=== PATIENT | female | born 1945 | race Caucasian/White ===

== ENCOUNTER → 2020-04-30 12:39 | Outpatient (BNVA) | payer OTHER, SELFPAY | PROVIDERS: Visit Provider Dermatology | DX: D48.9 Neoplasm of uncertain behavior, unspecified (principal) | CPT/HCPCS: 88304 ==

== ENCOUNTER 2022-05-04 12:26 | Outpatient (CLI) | payer MEDICARE, OTHER, SELFPAY ==
--- NOTE | 2022-05-04 12:53 | MM_ITS ---
WS: [id number] VIEWS: MLO and CC views both breasts. 3D digital tomosynthesis is also included in this exam. Comparison made with prior exam of outside mammograms dated 04/22/2020. Findings: There is 6.5 mm spiculated nodule in the medial posterior right breast best seen on the craniocaudal view. This is probably in the upper medial quadrant. This is suspicious for breast malignancy. No oth er discrete suspicious finding. The left breast is unchanged. Scattered fibroglandular densities. A straight 90 degree lateral view of the right breast and also regional ultrasound of the medial right breast would be indicated for further workup. MM/[place] [id number] Impression: BI-RADS: 0-Incomplete: Need additional imaging evaluation FOLLOW-UP: See Report This mammogram was also analyzed by the Computer Aided Detection System [employer].
== END 2022-05-04 12:27 | disposition home or self-care (01) ==
LOC: RAD 12:27
PROVIDERS: PCP Registered Nurse; Visit Provider Registered Nurse
DX: Z12.31 Encounter for screening mammogram for malignant neoplasm of breast (principal)
CPT/HCPCS: 77063; 77067

== ENCOUNTER 2022-06-29 12:41 | Outpatient (CLI) | payer MEDICARE, OTHER, SELFPAY ==
--- NOTE | 2022-06-29 12:59 | MM_ITS ---
WS: [id number] RIGHT 3D TOMOSYNTHESIS DIGITAL MAMMOGRAPHY WITH CAD CLINICAL INFORMATION: ABNORMAL MAMMO HISTORY: Additional views COMPARISON: May 04, 2022 TECHNIQUE: Additional views views of the right breast were obtained. FINDINGS: Scattered fibroglandular densities of the right breast. Again seen is the small 6 mm slightly spicula zhen lesion posterior depth RIGHT breast. This persists on spot compression views. Ultrasound describe d below. ULTRASOUND BREAST RIGHT TECHNIQUE: Ultrasound right breast focused area of concern. CLINICAL INFORMATION: ABNORMAL MAMMO FINDINGS: Ultrasound RIGHT breast 12 to 3:00 position. At the 1:00 position 8 cm from the nipple is an irregula r hypoechoic slightly spiculated solid nodule taller than wide measuring 7.6 x 5.9 x 7.8 mm. Recommen d further evaluation with ultrasound-guided biopsy. MM/[place] [id number] IMPRESSION: BI-RADS: 4-Suspicious Finding-Biopsy Should Be Considered FOLLOW UP: US Guided Biopsy Recommended Recommend further evaluation with ultrasound-guided biopsy
== END 2022-06-29 12:42 | disposition home or self-care (01) ==
PROVIDERS: PCP Registered Nurse; Visit Provider Registered Nurse
DX: R92.8 Other abnormal and inconclusive findings on diagnostic imaging of breast (principal); N63.12 Unspecified lump in the right breast, upper inner quadrant
CPT/HCPCS: 76642; 77061; G0279

== ENCOUNTER → 2022-07-06 12:39 | Outpatient (BNVA) | payer MEDICARE, OTHER, SELFPAY | PROVIDERS: PCP Registered Nurse; Visit Provider Dermatology | DX: D48.9 Neoplasm of uncertain behavior, unspecified (principal) | CPT/HCPCS: 88305 ==

== ENCOUNTER 2022-07-14 12:13 | Outpatient (CLI) | payer MEDICARE, OTHER, SELFPAY ==
--- NOTE | 2022-07-14 | US_ITS ---
WS: [id number] ULTRASOUND-GUIDED RIGHT BREAST BIOPSY HISTORY: ABNORMAL MAMMOGRAM, ABNORMAL ULTRASOUND OF THE BREAST COMPARISON: 06/29/2022 Procedure, risks and complications are explained to the patient. Medications are reviewed. Consent is obtained. The mass in the RIGHT breast is localized with ultrasound. Mass localizes to 1:00, 8 cm from the nipp le. Skin is cleansed with ChloraPrep and anesthetized with 1% buffered lidocaine. Small dermatome is made. Under sterile conditions mass is biopsied with a 14-gauge Achieve needle. Multiple core biopsie s are performed. Material placed in formalin and sent to pathology for review. No complications encou ntered. Breast tissue marker (Bard ultrasound enhanced ribbon): Single. Patient left the radiology suite with no complications. [place] [facility] [facility] with any concerns. US/[place] [id number] IMPRESSION: 1. Uncomplicated core needle biopsy RIGHT breast mass at 1:00. 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 RECOMMENDATION: Surgical and oncologic follow-up.
[2022-07-25 11:48] LABS: Breast Profile ER,PR,HER2,Ki-6 See Report
== END 2022-07-14 12:14 | disposition home or self-care (01) ==
PROVIDERS: PCP Registered Nurse; Visit Provider Registered Nurse
DX: R92.8 Other abnormal and inconclusive findings on diagnostic imaging of breast (principal); N63.12 Unspecified lump in the right breast, upper inner quadrant; C50.211 Malignant neoplasm of upper-inner quadrant of right female breast
CPT/HCPCS: 19083; 88305; 88361; 88374

== ENCOUNTER 2022-07-27 08:44 | Oncology outpatient (recurring) (ONCR) | payer MEDICARE, OTHER, SELFPAY | END 2022-08-16 23:59 | disposition home or self-care (01) | PROVIDERS: PCP Registered Nurse; Visit Provider Internal Medicine Hematology & Oncology | DX: C50.211 Malignant neoplasm of upper-inner quadrant of right female breast (principal); Z17.0 Estrogen receptor positive status [ER+] | CPT/HCPCS: 99204 ==

== ENCOUNTER → 2022-08-02 10:57 | Outpatient (BNVA) | payer MEDICARE, OTHER, SELFPAY | PROVIDERS: PCP Registered Nurse; Visit Provider Surgery | DX: C50.911 Malignant neoplasm of unspecified site of right female breast (principal); Z90.49 Acquired absence of other specified parts of digestive tract | CPT/HCPCS: 99203 ==

== ENCOUNTER 2022-08-29 07:53 | Day surgery (SDC) | payer MEDICARE, OTHER, SELFPAY ==
[2022-08-26 11:32] VITALS: BMI 26.0
[2022-08-29] VITALS (9 sets, daily range): BP systolic 126–157; BP diastolic 68–83; PULSE 70–90; RESP 12–18; TEMP 36.2–36.6; O2SAT 92–98
--- NOTE | 2022-08-29 | US_ITS ---
WS: [id number] ULTRASOUND-GUIDED RIGHT BREAST NEEDLE LOCALIZATION CLINICAL INFORMATION: RIGHT BREAST LUMPECTOMY COMPARISON: July 14, 2022 FINDINGS: The procedure including risks, benefits, and complications were discussed with the patient who agreed to proceed. Using sterile technique patient was prepped and draped in the usual sterile fashion. Aft er 1% lidocaine utilizing real-time ultrasound guidance 7 cm Kopan's needle was advanced through the lesion with wire tip approximately 3 cm distal to the lesion. Next a 5 cm Kopan's needle was advanced into the proximal aspect of the lesion and wire was deployed. No immediate complications. US/US surgical specimen IMPRESSION: 1. Uncomplicated ultrasound-guided wire localization RIGHT breast lesion at th e 1:00 position 8 cm from the nipple. 2. Surgical specimen demonstrates gross resection. 3. Recommend breast surgery and oncology follow-up. BI-RADS: 6-Known Biopsy-Proven Malignancy FOLLOW UP: See Report
--- NOTE | 2022-08-29 08:57 | ECG_ITS ---
[facility] Test Date: 2022-08-29 Pat Name: Leanna Coley Department: Room: Gender: Female Change Release Manager: : 1945 Requested By: Adan Blas Order Number: [id number] Cynthia MD: Magdiel Craig M.D. Measurements Intervals [place] Rate: 85 P: 37 [place]: 171 QRS: -20 QRSD: 88 T: 10 QT: 365 QTc: 435 Interpretive Statements SINUS RHYTHM LOW QRS VOLTAGE IN PRECORDIAL LEADS [QRS DEFLECTION < 1.0 mV IN CHEST LEADS] MODERATE VOLTAGE CRITERIA FOR LVH, CONSIDER NORMAL VARIANT [MEETS CRITERIA IN ONE OF: R(aVL), S(V1), R(V5), R(V5/V6)+S(V1)] POSSIBLE ANTERIOR MYOCARDIAL INFARCTION , OF INDETERMINATE AGE [30 ms Q WAVE IN V3/V4, OR R < 0.2 mV IN V4] INFERIOR MYOCARDIAL INFARCTION , PROBABLY OLD [40+ ms Q WAVE AND/OR ST/T ABNORMALITY IN II/aVF] No previous ECG available for comparison Electronically Signed On 08-30-2022 0:19:45 CDT by Magdiel Craig M.D. [id number]
[2022-08-29] MEDS: sodium chloride 0.9% 1,000 ML 30 ML IV (09:08)
[2022-08-29] MEDS: scopolamine 1.5 Patch 1 PATCH TRANSDERMA (09:30)
[2022-08-29] MEDS: ondansetron 2 mg/ML SDV 2 mL 4 MG IVP (09:31)
[2022-08-29] MEDS: diphenhydrAMINE 50 mg/mL SDV 1mL 12.5 MG IVP (09:33)
--- NOTE | 2022-08-29 09:39 | SUR.PREOP ---
09:40 PT TO ULTRASOUND.
--- NOTE | 2022-08-29 09:46 | P.ANESASSM_ITS ---
Pre-Anesthetic Assessment Height/Weight: Height 1.55 m Weight 62.596 kg Temp Pulse Resp BP Pulse Ox O2 Del Method 97.7 F 90 16 142/79 95 08/29/22 08:38 08/29/22 08:38 08/29/22 08:38 08/29/22 08:38 08/29/22 08:38 08/29/22 08:38 Preop Diagnosis: Right breast cancer Operation Date: 08/29/22 10:25 Proposed Procedures p 30601, 16940, 94126, 86364 right breast lumpectomy, NIRC, sentinal bx C50.911(Right) - DO onelia Swift Sentinal Lymph Node Biopsy(Right) - Pedro Lindo DO Familial anesthetic complications: PONV Was Beta Judith taken within 24 hours: N/A Was Clonidine taken within 24 hours: N/A Last intake: Intake Last Liquid Date 08/28/22 Last Liquid Time 22:00 Last Solid Date 08/28/22 Last Solid Time 20:00 Social No alcohol and No tobacco Exam alert, oriented x 3, clear to auscultation bilaterally and regular rate & rhythm Airway Submandibular: within normal limits Cervical ROM: within normal limits Mallampati: Class II Dentition: full GI Gastroesophageal Reflux Disease Metabolic Hyperlipidemia chronic steroids (for rash) Anesthetic Plan ASA status: 2 Anesthesia: General (TIVA) Medications/Allergies Home Medications Medication Instructions Recorded Confirmed Last Taken Type aspirin 81 mg tablet,delayed 81 mg PO DAILY 04/29/20 08/26/22 08/23/22 History release (Adult Aspirin Regimen) famotidine 10 mg tablet 10 mg PO DAILY 04/29/20 08/29/22 08/26/22 History multivitamin 1 tab PO QAM 04/29/20 08/29/22 08/27/22 History simvastatin 20 mg tablet 20 mg PO DAILY 04/29/20 08/26/22 08/27/22 History triamcinolone acetonide 0.1 % 1 applic topical BID #80 grams 04/04/22 08/29/22 08/26/22 Rx topical cream prednisone 20 mg tablet 20 mg PO 1XD PRN Rash 07/27/22 08/29/22 07/25/22 History Allergies Allergy/AdvReac Type Severity Reaction Status Date / Time cucumber Allergy ALGY-Anaphy Verified 02/14/23 11:19 laxis egg Allergy Unknown Verified 08/02/22 11:19 lactose Allergy ADR-Abdominal Verified 08/02/22 11:19 Pain morphine Allergy ADR-Nausea Verified 08/02/22 11:19 Nuts Allergy ALGY-Rash Uncoded 08/02/22 11:19 Current Medications Generic Name Dose Route Start Last Admin Trade Name Freq PRN Reason Stop Dose Admin Sodium Chloride 1,000 mls @ 30 mls/hr 08/29/22 08:15 08/29/22 09:08 Sodium Chloride 0.9% IV 08/30/22 08:14 30 mls/hr .Q24H DEBRA Administration Ondansetron HCl 4 mg 08/29/22 08:07 08/29/22 09:31 Ondansetron 2 Mg/Ml Sdv 2 Ml IVP 4 mg Q5M PRN Administration NAUSEA AND VOMITING PFSH Anesthesia Medical History (Updated 08/02/22 @ 12:14 by Pedro Lindo DO) Breast cancer, right Ductal carcinoma in situ (DCIS) of right breast History of nonmelanoma skin cancer Surgical History (Updated 08/02/22 @ 12:14 by Pedro Lindo DO) History of appendectomy History of History of foot surgery History of hysterectomy History of tonsillectomy Hx of colonoscopy Family History Mother CAD (coronary artery disease) Father Diabetes Grandmother Diabetes Social History Smoking and tobacco status: former smoker Quit status (tobacco): has quit using tobacco Former quit date comment: Quit > 55 years ago, smoked x 5 years Second hand smoke exposure: No Smoking risk assessment/counseling performed?: No Alcohol intake: former Data Anesthesia Cardiac Studies: No Data to Display
--- NOTE | 2022-08-29 09:52 | US_ITS ---
WS: [id number] ULTRASOUND-GUIDED RIGHT BREAST NEEDLE LOCALIZATION CLINICAL INFORMATION: RIGHT BREAST LUMPECTOMY COMPARISON: July 14, 2022 FINDINGS: The procedure including risks, benefits, and complications were discussed with the patient who agreed to proceed. Using sterile technique patient was prepped and draped in the usual sterile fashion. Aft er 1% lidocaine utilizing real-time ultrasound guidance 7 cm Kopan's needle was advanced through the lesion with wire tip approximately 3 cm distal to the lesion. Next a 5 cm Kopan's needle was advanced into the proximal aspect of the lesion and wire was deployed. No immediate complications. US/[place] [id number] IMPRESSION: 1. Uncomplicated ultrasound-guided wire localization RIGHT breast lesion at th e 1:00 position 8 cm from the nipple. 2. Surgical specimen demonstrates gross resection. 3. Recommend breast surgery and oncology follow-up. BI-RADS: 6-Known Biopsy-Proven Malignancy FOLLOW UP: See Report
--- NOTE | 2022-08-29 09:55 | W.PM.OPSUD ---
Surgery/Procedure H&P Update DATE OF PROCEDURE: August 29, 2022 DATE H&P PERFORMED: 08/02/22 H&P UPDATE INFORMATION: I have reviewed H&P completed within last 30 days, I have examined patient prior to procedure and No changes to prior documentation PREOP DIAGNOSIS: Right breast cancer PLANNED PROCEDURE: Operation Date: 08/29/22 10:25 Proposed Procedures p 13494, 14154, 94850, 64670 right breast lumpectomy, NIRC, sentinal bx C50.911(Right) - Pedro Lindo DO s [place] Lymph Node Biopsy(Right) - Pedro Lindo DO
--- NOTE | 2022-08-29 10:42 | SUR.PREOP ---
10:35 returned from radiology.
[2022-08-29] MEDS: ceFAZolin 2,000 MG in sodium chloride 0.9% (plus) 50 ML 100 MG IV (10:43)
--- NOTE | 2022-08-29 10:58 | PC.NURSE ---
Patient was injected with 0.83 mCi Tc99m Tilmanocept Lymphoseek at 1025 in the 12:00 position of the right breast by Luz Byrd [facility]. No complications.
[2022-08-29] MEDS: isosulfan blue 10 mg/mL SDV 5mL SUBCUT (11:09)
[2022-08-29] MEDS: lidocaine-epi 2% 20 mL INJ INJECTION (11:13)
--- NOTE | 2022-08-29 11:55 | P.OP_ITS ---
Operative Report Date of procedure: August 29, 2022 Pre-op diagnosis: Preop Diagnosis Right breast cancer Post-op diagnosis: same Procedure done: Right breast lumpectomy and sentinel lymph node biopsy Implants: Laury Specimens removed/disposition: Right breast lumpectomy Right axillary sentinel lymph nodes Surgeon: Dr. Pedro Lindo DO Anesthesia: General Estimated blood loss (mL): 30 Complications: None apparent Brief History: This is a very pleasant 77-year-old female who was found to have invasive ductal carcinoma of the right breast by ultrasound-guided biopsy. Lumpectomy and sentinel lymph node biopsy was indicated. The risks and benefits were explained and documented. Procedure: After radiotracer was injected and wire localization was performed by radiology, the patient was brought back into the operating room. She was placed on the OR table in the supine position. The right breast and axilla were inspected prepped and draped in usual sterile fashion. Lymphazurin blue was injected underneath the right nipple and massaged for 5 minutes. A timeout was performed. All present were in agreement. A 4 cm incision was made in the right axilla. Dissection was carried down with electrocautery. The [place] counter was used to locate a sentinel lymph node. The nipple measured 359 on the [place] counter and a blue sentinel lymph node was identified in the axilla that measured 69 on the [place] counter. A second lymph node was identified as well that measured 45 but was not blue. No other large, blue, or high count lymph nodes were in the axilla. Both specimens were passed off to go to pathology along with the surrounding fat. Hemostasis was noted. Next, after localization a 5 cm incision was made over the mass, in the 1 o'clock position. Electrocautery was used to carve out a lumpectomy specimen. Both needles were included. Anterior margin seem to be the closest margin. However only skin and subcutaneous fat was anterior to this. Dissection was carried down to the pectoralis major muscle. Specimen was taken out en bloc. Wire marked lateral. Short stitch marked superior. Double stitch marked anterior. Hemostasis was achieved with electrocautery. Both incisions were irrigated and hemostasis was achieved with electrocautery. Larger bleeders were clipped. Laury was placed into the incisions. Radiology called and confirmed that the clip was in the specimen and surrounded by adequate fat margins. The dermis was approximated with 3-0 Vicryl. The skin was closed with 4-0 Monocryl in a subcuticular and running fashion. Dermabond was applied. Patient tolerated the procedure well.
--- NOTE | 2022-08-29 16:58 | ANE.PACU2 ---
Inpatient post-anesthesia follow up: Airway intact: Yes Vital signs: Temperature 97.8 F Pulse Rate 78 Respiratory Rate 16 Blood Pressure 126/68 Pulse Oximetry 95 Oxygen Delivery Me thod Room Air Oxygen Flow Rate 6 Fraction of Inspir ed Oxygen Hydration adequate: Yes Nausea and vomiting: No Pain level: 2 Mental status: Baseline
== END 2022-08-29 14:37 | disposition home or self-care (01) ==
PROVIDERS: PCP Registered Nurse; Visit Provider Surgery
PROC: (CPT 19120; principal; 2022-08-29 10:15)
PROC: (CPT 19301; 2022-08-29 10:15)
DX: D05.11 Intraductal carcinoma in situ of right breast (principal); K21.9 Gastro-esophageal reflux disease without esophagitis; E78.5 Hyperlipidemia, unspecified; Z79.82 Long term (current) use of aspirin; Z87.891 Personal history of nicotine dependence; Z88.5 Allergy status to narcotic agent
CPT/HCPCS: 19301; 38500; 19285; 38792; 88307; 93005; A4216; A9520; C1889; J0131; J0690; J1100; J1200; J2250; J2405; J2704; J3010; J7030; Q9968

== ENCOUNTER → 2022-09-16 13:35 | Outpatient (BNVA) | payer MEDICARE, OTHER, SELFPAY | PROVIDERS: PCP Registered Nurse; Visit Provider Surgery | DX: C50.911 Malignant neoplasm of unspecified site of right female breast (principal); Z98.890 Other specified postprocedural states | CPT/HCPCS: 99024 ==

== ENCOUNTER 2022-09-26 12:36 | Oncology outpatient (recurring) (ONCR) | payer MEDICARE, OTHER, SELFPAY ==
[2022-09-21 14:29] LABS: Basophils # 0.1 10^3/uL (0.0-0.1); Basophils % 1.2 %; Eosinophils # 0.2 10^3/uL (0.0-0.8); Eosinophils % 4.6 %; Hematocrit 35.8 % (37.0-47.0); Hemoglobin 11.2 g/dL (11.5-15.3); Lymphocytes # 1.4 10^3/uL (0.8-4.8); Lymphocytes % 27.5 %; Mean Corpuscular HGB Conc 31.3 g/dL (30.0-36.0); Mean Corpuscular Hemoglobin 28.5 pg (28.0-34.0); Mean Corpuscular Volume 91.1 fl (81-99); Mean Platelet Volume 10.2 fL (7.4-10.4); Monocytes # 0.5 10^3/uL (0.2-0.9); Neutrophils # 2.89 10^3/uL (1.8-7.7); Neutrophils % 57.5 %; Nucleated Red Blood Cells % 0 %; Platelet Count 278 10^3/cmm (130-400); Red Blood Count 3.93 10^6/uL (4.1-5.3); Red Cell Distribution Width 12.8 % (12.1-15.1)
[2022-09-21 14:51] LABS: Alanine Aminotransferase 12 U/L (0-33); Albumin Level 3.8 g/dL (3.5-5.2); Alkaline Phosphatase 97 U/L (35-105); Anion Gap 12.7 (5-19); Aspartate Amino Transferase 18 U/L (0-32); Blood Urea Nitrogen 11 mg/dL (8-23); Calcium 8.9 mg/dL (8.5-10.5); Carbon Dioxide 27 mmol/L (22-29); Chloride 106 mmol/L (98-107); Glucose 108 mg/dL (65-115); Osmolality Calculated 294 mOsm/kg (285-295); Potassium 3.7 mmol/L (3.5-5.1); Sodium 142 mmol/L (136-145); Total Bilirubin 0.2 mg/dL (0.15-1.2); Total Protein 6.8 g/dL (6.6-8.7)
--- NOTE | 2022-09-26 13:11 | N.ONRAD NP_ITS ---
Radiation Oncology Consultation Patient Name: Leanna Coley Date of : 1945 Date of Service: 09/26/2022 Attending Physician: Adrien Barboza M.D. Leanna Coley was seen in consultation at the request of Remedios Hayden M.D. for consideration of adjuvant radiotherapy in the management of a recently diagnosed breast cancer. A screening mammogram (independently reviewed in [facility]) obtained on May 04, 2022 identified a spiculated nodule within the postero-medial right breast measuring 6.5 mm. A right 3D tomosynthesis digital mammogram completed on June 29, 2022 demonstrated persistence of the described nodule on spot compression views. Ultrasonography confirmed in the right breast at the 12 o'clock to 3 o???clock position that was 8 cm from the nipple a 7.6 mm x 5.9 mm x 7.8 mm hypoechoic lesion. An ultrasound-guided biopsy completed on July 14, 2022 diagnosed a grade II invasive ductal carcinoma. The Breast Cancer Prognostic Profile was positive for estrogen receptor (95%) and progesterone receptor (25%) while negative for HER-2 (1+; ratio 1.2). The Ki-67 was 8%. A right breast lumpectomy with needle localization and axillary sentinel lymph node biopsy was performed by Pedro Lindo D.O. on August 29, 2022. The pathology report confirmed a 5 mm invasive ductal carcinoma (grade I-II). All surgical margins were uninvolved by malignancy. A total of 3 benign sentinel lymph nodes were harvested. The Oncotype DX Breast Recurrence Score was 15 (less than 1% absolute chemotherapy benefit). She was scheduled to discuss adjuvant radiotherapy. I reviewed the [place] [employer] on Cancer Staging for breast cancer and specifically the patient's pathological stage IA (T1aN0) corresponding to her disease and The National Comprehensive Cancer Network Guidelines for the omission of breast irradiation in patients 70 years of age or older with estrogen receptor positive, clinically node-negative, T1-2 tumors who will receive adjuvant endocrine therapy. I summarized the randomized trial (CALGB 9343) that established this standard published in The [place] Journal of Medicine, The study demonstrated the addition of radiotherapy to endocrine therapy improved local control compared to endocrine therapy alone without an overall survival advantage. I also reviewed the classic study by NSABP comparing mastectomy, lumpectomy, and lumpectomy with radiotherapy and the Early Breast Cancer Trialist Collaborative Group meta-analysis. She is aware that the addition of radiotherapy to lumpectomy provides improvement in local control and overall survival. If the patient elects to have treatment, I anticipate a 3 week course of hypofractionated radiotherapy. The patient would like to evaluate her treatment options prior to making a final decision. Signed by: Adrien Barboza 09/26/2022 1:10:07 PM
== END 2022-10-16 23:59 | disposition home or self-care (01) ==
PROVIDERS: PCP Registered Nurse; Visit Provider Internal Medicine Hematology & Oncology
DX: C50.211 Malignant neoplasm of upper-inner quadrant of right female breast (principal); Z17.0 Estrogen receptor positive status [ER+]; D64.9 Anemia, unspecified; Z79.811 Long term (current) use of aromatase inhibitors; Z79.899 Other long term (current) drug therapy; Z87.891 Personal history of nicotine dependence
CPT/HCPCS: 36415; 80053; 85025; 99205; 99214

== ENCOUNTER 2022-11-01 09:15 | Oncology outpatient (recurring) (ONCR) | payer MEDICARE, OTHER, SELFPAY ==
--- NOTE | 2022-10-24 | CT_ITS ---
Radiation Therapy Planning CT images; total exam DLP: 775.96 mGy-cm MTDD
--- NOTE | 2022-10-31 09:51 | ONCRAD TMN_ITS ---
Radiation Oncology Treatment Management Note Patient Name: Leanna Coley Date of : 1945 Date of Service: 10/31/2022 Attending Physician: Adrien Barboza M.D. Leanna Coley is a 77 year-old white female diagnosed with a pathological stage IA (T1aN0) breast cancer. A screening mammogram obtained on May 04, 2022 identified a spiculated nodule within the postero-medial right breast measuring 6.5 mm. A right 3D tomosynthesis digital mammogram completed on June 29, 2022 demonstrated persistence of the described nodule on spot compression views. Ultrasonography confirmed in the right breast at the 12 o'clock to 3 o???clock position that was 8 cm from the nipple a 7.6 mm x 5.9 mm x 7.8 mm hypoechoic lesion. An ultrasound-guided biopsy completed on July 14, 2022 diagnosed a grade II invasive ductal carcinoma. The Breast Cancer Prognostic Profile was positive for estrogen receptor (95%) and progesterone receptor (25%) while negative for HER-2 (1+; ratio 1.2). The Ki-67 was 8%. A right breast lumpectomy with needle localization and axillary sentinel lymph node biopsy was performed by Pedro Lindo D.O. on August 29, 2022. The pathology report confirmed a 5 mm invasive ductal carcinoma (grade I-II). All surgical margins were uninvolved by malignancy. A total of 3 benign sentinel lymph nodes were harvested. The Oncotype DX Breast Recurrence Score was 15 (less than 1% absolute chemotherapy benefit). She has received 20.8 Gy of a prescribed 26 Gy delivered in the prone disposition with a 3D conformal radiotherapy plan utilizing opposed tangential portal olvera with a jsiwy-lo-noyko treatment technique. Upon review of systems, she denied any breast complaints to radiotherapy. On physical examination, the patient weighed 142 lbs. Her temperature was 97.1 ???F and the blood pressure was 143/70 mmHg. Her pulse was 105 bpm and the respiratory rate was 18. There was no erythema within the treatment olvera of the breast. Continue right breast radiotherapy as prescribed. Signed by: Adrien Barboza 10/31/2022 9:50:32 AM
--- NOTE | 2022-11-01 09:31 | N.ONRD TS_ITS ---
Radiation OncologyTreatment Summary Patient Name: Leanna Coley Date of : 1945 Date of Service: 11/01/2022 Attending Physician: Adrien Barboza M.D. Leanna Coley has completed adjuvant right breast radiotherapy for the management of a pathological stage IA (T1aN0) breast cancer. A screening mammogram obtained on May 04, 2022 identified a spiculated nodule within the postero-medial right breast measuring 6.5 mm. A right 3D tomosynthesis digital mammogram completed on June 29, 2022 demonstrated persistence of the described nodule on spot compression views. Ultrasonography confirmed in the right breast at the 12 o'clock to 3 o???clock position that was 8 cm from the nipple a 7.6 mm x 5.9 mm x 7.8 mm hypoechoic lesion. An ultrasound-guided biopsy completed on July 14, 2022 diagnosed a grade II invasive ductal carcinoma. The Breast Cancer Prognostic Profile was positive for estrogen receptor (95%) and progesterone receptor (25%) while negative for HER-2 (1+; ratio 1.2). The Ki-67 was 8%. A right breast lumpectomy with needle localization and axillary sentinel lymph node biopsy was performed by Pedro Lindo D.O. on August 29, 2022. The pathology report confirmed a 5 mm invasive ductal carcinoma (grade I-II). All surgical margins were uninvolved by malignancy. A total of 3 benign sentinel lymph nodes were harvested. The Oncotype DX Breast Recurrence Score was 15 (less than 1% absolute chemotherapy benefit). Daily radiotherapy was administered between the dates of October 26, 2022 through November 01, 2022. A prescribed dose of 26 Gy was delivered in 5 fractions encompassing 7 elapsed days. The right breast was treated in the prone position with a 3-dimensional conformal radiotherapy plan applying an opposed tangential portal field design utilizing a jdxsk-se-cedgo treatment technique. The medial tangential field utilized a 240??? gantry angle with a collimator angle of 0???. The field size measured 7.6 cm x 10.8 cm within the X-direction and 7 cm x 7.8 cm within the Y-direction. The SSD measured 95.3 cm with the field delivering 258 monitor units. An energy of 6 MV was prescribed. Supplemental medial tangential ports with multi-leaf collimation were designed prescribing 6 MV photon energy that administered 15 MU, 12 MU, 15 MU, 10 MU, and 10 monitor units. The lateral tangential field employed a gantry angle of 58??? with a collimator angle of 0???. The field size measured 10.5 cm x 7.6 cm within X-direction and 7.4 cm x 8.7 cm within the Y-direction. The measured SSD was 96.1 cm with the field allocating 253 monitor units. A photon energy of 6 MV was prescribed. All treatments were performed with the Brandwatch linear accelerator and an isocentric technique. The dose was calculated by Anisotropic Analytic Algorithm. The plan was normalized to deliver 95% of the prescription dose to 95% of the planning target volume. Signed by: Adrien Barboza 11/01/2022 9:30:27 AM
== END 2022-11-16 23:59 | disposition home or self-care (01) ==
PROVIDERS: PCP Registered Nurse; Visit Provider Radiology Radiation Oncology
DX: Z51.0 Encounter for antineoplastic radiation therapy (principal); C50.211 Malignant neoplasm of upper-inner quadrant of right female breast; Z17.0 Estrogen receptor positive status [ER+]; D64.9 Anemia, unspecified; Z79.811 Long term (current) use of aromatase inhibitors; Z79.899 Other long term (current) drug therapy; Z87.891 Personal history of nicotine dependence
CPT/HCPCS: 77014; 77263; 77280; 77295; 77300; 77332; 77334; 77336; 77387; 77412; 77470; 99024; 99213

== ENCOUNTER 2022-11-18 09:11 | Oncology outpatient (recurring) (ONCR) | payer MEDICARE, OTHER, SELFPAY ==
--- NOTE | 2022-11-18 09:40 | ONCRAD EPV_ITS ---
Radiation Oncology Follow-Up Note Patient Name: Leanna Coley Date of : 1945 Date of Service: 11/18/2022 Attending Physician: Adrien Barboza M.D. Leanna Coley returned to my office this morning for a routinely scheduled post-radiotherapy follow-up appointment. She completed right breast radiotherapy in October for the management of a pathological stage IA (T1aN0) breast cancer. A screening mammogram obtained on May 04, 2022 identified a spiculated nodule within the postero-medial right breast measuring 6.5 mm. A right 3D tomosynthesis digital mammogram completed on June 29, 2022 demonstrated persistence of the described nodule on spot compression views. Ultrasonography confirmed in the right breast at the 12 o'clock to 3 o???clock position that was 8 cm from the nipple a 7.6 mm x 5.9 mm x 7.8 mm hypoechoic lesion. An ultrasound-guided biopsy completed on July 14, 2022 diagnosed a grade II invasive ductal carcinoma. The Breast Cancer Prognostic Profile was positive for estrogen receptor (95%) and progesterone receptor (25%) while negative for HER-2 (1+; ratio 1.2). The Ki-67 was 8%. A right breast lumpectomy with needle localization and axillary sentinel lymph node biopsy was performed by Pedro Lindo D.O. on August 29, 2022. The pathology report confirmed a 5 mm invasive ductal carcinoma (grade I-II). All surgical margins were uninvolved by malignancy. A total of 3 benign sentinel lymph nodes were harvested. The Oncotype DX Breast Recurrence Score was 15 (less than 1% absolute chemotherapy benefit). Daily radiotherapy was administered between the dates of October 26, 2022 through November 01, 2022. A prescribed dose of 26 Gy was delivered in 5 fractions encompassing 7 elapsed days. On review of systems, she did not report any breast complaints. On physical examination, the patient weighed 143 lbs and the temperature was 97.3???F and the blood pressure was 129/66 mmHg. The pulse was 88 bpm and the respiratory rate was 18 breaths per minute. Examination of the left breast did not reveal any significant erythema. In summary, Ms. Coley returned for a routine follow-up appointment. There were no sequelae from treatment. She will continue follow-up as scheduled with her medical oncologist. Signed by: Dr. Adrien Barboza 11/18/2022 9:39:32 AM
== END 2022-12-16 23:59 | disposition home or self-care (01) ==
PROVIDERS: PCP Registered Nurse; Visit Provider Radiology Radiation Oncology
DX: C50.211 Malignant neoplasm of upper-inner quadrant of right female breast (principal); Z17.0 Estrogen receptor positive status [ER+]; D64.9 Anemia, unspecified; Z79.811 Long term (current) use of aromatase inhibitors; Z79.899 Other long term (current) drug therapy; Z87.891 Personal history of nicotine dependence
CPT/HCPCS: 99024

== ENCOUNTER → 2023-01-04 13:35 | Outpatient (BNVA) | payer MEDICARE, OTHER, SELFPAY | PROVIDERS: PCP Registered Nurse; Visit Provider Dermatology | DX: L82.0 Inflamed seborrheic keratosis (principal) | CPT/HCPCS: 17000; 17110; 99214 ==

== ENCOUNTER 2023-01-23 12:08 | Oncology outpatient (recurring) (ONCR) | payer MEDICARE, OTHER, SELFPAY ==
[2023-01-23 12:10] VITALS: BP 151/77; PULSE 86; RESP 16; TEMP 36.6; O2SAT 98
[2023-01-23 12:29] LABS: Basophils % 0.5 %; Eosinophils # 0.1 10^3/uL (0.0-0.8); Hematocrit 38.9 % (37.0-47.0); Hemoglobin 12.4 g/dL (11.5-15.3); Lymphocytes # 1.5 10^3/uL (0.8-4.8); Lymphocytes % 24.1 %; Mean Corpuscular HGB Conc 31.9 g/dL (30.0-36.0); Mean Corpuscular Hemoglobin 28.2 pg (28.0-34.0); Mean Corpuscular Volume 88.6 fl (81-99); Mean Platelet Volume 9.9 fL (7.4-10.4); Monocytes # 0.6 10^3/uL (0.2-0.9); Monocytes % 9.7 %; Neutrophils # 3.92 10^3/uL (1.8-7.7); Neutrophils % 64.2 %; Nucleated Red Blood Cells % 0 %; Platelet Count 261 10^3/cmm (130-400); Red Blood Count 4.39 10^6/uL (4.1-5.3); Red Cell Distribution Width 13.4 % (12.1-15.1); White Blood Count 6.1 10^3/uL (4.0-10.0)
[2023-01-23 13:12] LABS: Alanine Aminotransferase 13 U/L (0-33); Albumin Level 4.2 g/dL (3.5-5.2); Alkaline Phosphatase 102 U/L (35-105); Anion Gap 14.6 (5-19); Aspartate Amino Transferase 20 U/L (0-32); Blood Urea Nitrogen 9 mg/dL (8-23); Calcium 9.3 mg/dL (8.5-10.5); Carbon Dioxide 25 mmol/L (22-29); Chloride 106 mmol/L (98-107); Glucose 74 mg/dL (65-115); Osmolality Calculated 291 mOsm/kg (285-295); Potassium 3.6 mmol/L (3.5-5.1); Sodium 142 mmol/L (136-145); Total Bilirubin 0.3 mg/dL (0.15-1.2); Total Protein 7.2 g/dL (6.6-8.7)
== END 2023-02-16 23:59 | disposition home or self-care (01) ==
PROVIDERS: Nurse Practitioner Family; PCP Registered Nurse; Visit Provider Radiology Radiation Oncology
DX: C50.211 Malignant neoplasm of upper-inner quadrant of right female breast (principal); Z17.0 Estrogen receptor positive status [ER+]; Z79.811 Long term (current) use of aromatase inhibitors; Z79.899 Other long term (current) drug therapy; Z87.891 Personal history of nicotine dependence; Z53.9 Procedure and treatment not carried out, unspecified reason
CPT/HCPCS: 36415; 80053; 85025; 99214

== ENCOUNTER 2023-04-26 12:32 | Outpatient (CLI) | payer MEDICARE, OTHER, SELFPAY ==
--- NOTE | 2023-04-26 13:00 | XR_ITS ---
WS: [id number] DEXA (DUAL ENERGY X-RAY ABSORPTIOMETRY) Bone mineral density was performed using a [email or web address] machine. HISTORY: Breast cancer, on an aromatase inhibitor COMPARISON: None available. Lumbar spine BMD (L1-L4): 0.969 T score: -1.9 Z score: -0.1 Total hip BMD: Left: 0.819 g/cm2. T score: -1.5 Z score: 0.5 Right: 0.735 g/cm2. T score: -2.2 Z score: -0.2 10 year probability of a major osteoporotic fracture is 36.3%. IMPRESSION: OSTEOPENIA based upon the WHO classification for females.
--- NOTE | 2023-04-26 13:30 | MM_ITS ---
WS: [id number] BILATERAL 3D TOMOSYNTHESIS DIGITAL DIAGNOSTIC MAMMOGRAPHY WITH CAD CLINICAL INFORMATION: Surveillance. HX BR CA HISTORY: History of RIGHT breast cancer with lumpectomy and radiation COMPARISON: 2021 TECHNIQUE: Bilateral CC, MLO, and ML views. FINDINGS: The breasts are composed of heterogeneous fibroglandular density, which can limit the detection of sm all underlying mass lesions. Prior lumpectomy RIGHT breast at 1 o'clock position posterior depth. No new suspicious findings. No suspicious focal mass, asymmetry, calcifications, or architectural distortion. No evidence of mercy gnancy. IMPRESSION: MM/[place] [id number] BI-RADS: 2-Benign FOLLOW UP: 1 Year Follow-up Recommend return to annual diagnostic mammography.
== END 2023-04-26 12:33 | disposition home or self-care (01) ==
LOC: RAD 12:32
PROVIDERS: PCP Registered Nurse; Visit Provider Nurse Practitioner Family
DX: C50.911 Malignant neoplasm of unspecified site of right female breast (principal); Z79.811 Long term (current) use of aromatase inhibitors
CPT/HCPCS: 77062; 77080; G0279

== ENCOUNTER 2023-05-24 10:11 | Oncology outpatient (recurring) (ONCR) | payer MEDICARE, OTHER, SELFPAY ==
[2023-05-24 10:36] VITALS: BP 146/74; PULSE 98; RESP 16; TEMP 36.7; O2SAT 97
[2023-05-24 10:48] LABS: Basophils % 0.8 %; Eosinophils # 0.1 10^3/uL (0.0-0.8); Eosinophils % 1.5 %; Hematocrit 37.6 % (36-47); Lymphocytes # 1.1 10^3/uL (0.8-4.8); Lymphocytes % 20.5 %; Mean Corpuscular HGB Conc 31.4 g/dL (30-55); Mean Corpuscular Hemoglobin 28.7 pg (27-33); Mean Corpuscular Volume 91.5 fl (85-98); Mean Platelet Volume 9.6 fL (7.4-10.4); Monocytes # 0.4 10^3/uL (0.2-0.9); Monocytes % 8.1 %; Neutrophils # 3.63 10^3/uL (1.8-7.7); Neutrophils % 68.7 %; Nucleated Red Blood Cells % 0 %; Platelet Count 304 10^3/cmm (157-399); Red Blood Count 4.11 10^6/uL (3.85-5.65); Red Cell Distribution Width 13.2 % (12.1-15.1); White Blood Count 5.28 10^3/uL (3.29-11.43)
[2023-05-24 11:07] LABS: Alanine Aminotransferase 11 U/L (0-33); Alkaline Phosphatase 112 U/L (35-105); Aspartate Amino Transferase 16 U/L (0-32); Blood Urea Nitrogen 11 mg/dL (8-23); Calcium 9.2 mg/dL (8.5-10.5); Carbon Dioxide 28 mmol/L (22-29); Chloride 105 mmol/L (98-107); Globulin 3.1 g/dL (1.3-4.6); Glucose 102 mg/dL (65-115); Osmolality Calculated 294 mOsm/kg (285-295); Sodium 142 mmol/L (136-145); Total Bilirubin 0.3 mg/dL (0.15-1.2); Total Protein 7.1 g/dL (6.6-8.7)
== END 2023-06-18 23:59 | disposition home or self-care (01) ==
PROVIDERS: Nurse Practitioner Family; PCP Registered Nurse; Visit Provider Radiology Radiation Oncology
DX: C50.211 Malignant neoplasm of upper-inner quadrant of right female breast (principal); Z17.0 Estrogen receptor positive status [ER+]; Z79.811 Long term (current) use of aromatase inhibitors; Z79.899 Other long term (current) drug therapy; Z87.891 Personal history of nicotine dependence
CPT/HCPCS: 36415; 80053; 85025; 99214

== ENCOUNTER → 2023-07-05 14:01 | Outpatient (BNVA) | payer MEDICARE, OTHER, SELFPAY | PROVIDERS: PCP Registered Nurse; Visit Provider Dermatology | DX: L57.0 Actinic keratosis (principal); L30.0 Nummular dermatitis; I87.2 Venous insufficiency (chronic) (peripheral); L82.0 Inflamed seborrheic keratosis; L57.8 Other skin changes due to chronic exposure to nonionizing radiation; L81.4 Other melanin hyperpigmentation; Z92.3 Personal history of irradiation; Z85.828 Personal history of other malignant neoplasm of skin | CPT/HCPCS: 17000; 17110; 99214 ==

== ENCOUNTER 2023-11-18 09:37 | Emergency (ER) | payer MEDICARE, OTHER, SELFPAY ==
[2023-11-18 09:47] VITALS: BP 169/73; PULSE 100; RESP 17; O2SAT 97
--- NOTE | 2023-11-18 10:04 | ED_ITS ---
HPI - GI Bleed 2 General: Chief complaint: GI Bleed Stated complaint: blood in stool Time Seen by Provider: 11/18/23 09:45 Source: patient Mode of arrival: ambulatory History of Present Illness: 78-year-old female presents emergency ro om with complaints of a episode of bloody stool. This morning she had a single episode of bloody stools mostly on the toilet paper and a small clot in the toilet. She about 10 years ago she had a colonoscopy which showed some diverticuli she is not on any anticoagulants she denies any abdominal pain no melena or hematemesis. complaint: blood on toilet paper Onset (ago): minute(s) Relieving factors: none Exacerbating factors: none Associated symptoms: Denies abdominal pain, chills, easy bruising, epistaxis, fever(s), headache(s), malaise, nausea, other bleeding, poor appetite, rash, syncope, vomiting or weakness Review of Systems 2 Const: Denies: fever(s), chills or malaise ENMT: Denies: epistaxis Card: Denies: chest pain or syncope Resp: Denies: dyspnea GI: Denies: abdominal pain, nausea or vomiting : Denies: dysuria, urinary frequency or urinary urgency Musc: Denies: neck pain or back pain Skin/Breast: Denies: rash Neuro: Denies: headache(s) Gabriel/Lymph: Denies: easy bruising PFSH ED 2 PFSH: Medical History Ductal carcinoma in situ (DCIS) of right breast Breast cancer, right History of nonmelanoma skin cancer Surgical History History of lumpectomy of right breast Hx of colonoscopy History of tonsillectomy History of appendectomy History of hysterectomy History of History of foot surgery Family History Mother CAD (coronary artery disease) Father Diabetes Grandmother Diabetes Social History Smoking and tobacco/nicotine status: former use of tobacco/nicotine Quit status (tobacco/nicotine): has quit using Former quit date comment: Quit >55 years ago, smoked x 5 years Second hand smoke exposure: No Alcohol intake: former Substance/Drug Use: never Physical Exam 2 Const: GENERAL APPEARANCE: cooperative and comfortable O RIENTATION/CONSCIOUSNESS: Yes awake, Yes oriented to person, Yes oriented to place and Yes oriented to time HENMT: COMMON NORMALS: normocephalic, atraumatic and hearing grossly normal bilaterally HEAD & SCALP: normocephalic and atraumatic Resp: COMMON NORMALS: normal respiratory effort, No retractions, No use of accessory muscles and clear to auscultation bilaterally AUSCULTATION: clear to auscultation bilaterally Cardio: COMMON NORMALS: regular rate, regular rhythm and No murmurs present (Cardio) RATE: regular rate RHYTHM: regular rhythm GI: COMMON NORMALS: Soft to palpation and No hepatosplenomegaly present A USCULTATION: Yes normoactive bowel sounds PALPATION: Yes Soft to palpation, No Tenderness to palpation present (GI), No Guarding due to palpation present (GI) and Yes No hepatosplenomegaly present OTHER: Visual examination of the rectum shows this shallow rectal fissure at the 7 o'clock position. No active bleeding there are several hemorrhoidal tags none are thrombosed or inflamed at this time Extremity: COMMON NORMALS: normal to inspection, capillary refill normal, no clubbing, cyanosis or edema, no calf tenderness and no pedal edema Neuro: SENSORIUM/ORIENTATION: Yes oriented to person, Yes oriented to place and Yes oriented to time Skin: COMMON NORMALS: no rashes or lesions noted GENERAL SKIN EXAM: no rashes or lesions noted Course 2 Vital Signs: Vital signs: Vital Signs Pulse Rate 92 11/18/23 11:09 Respiratory Rate 17 11/18/23 09:47 Blood Pressure 134/78 11/18/23 11:09 Pulse Oximetry 95 11/18/23 11:09 Oxygen Delivery Me thod Room Air 11/18/23 09:47 MDM - GI Bleed Medical Decision Making Rectal fissure hemoglobin stable no active bleeding discharge home with topical nitro to rectal area twice daily until healed Lab Data 11/18/23 10:04 11/18/23 10:49 Laboratory Results WBC 5.05 10^3/uL (3.29-11.43) 11/18/23 10:04 RBC 4.26 10^6/uL (3.85-5.65) 11/18/23 10:04 Hgb 12.00 g/dL (11.27-16.99) 11/18/23 10:04 Hct 37.9 % (36-47) 11/18/23 10:04 MCV 89.0 fl (85-98) 11/18/23 10:04 MCH 28.2 pg (27-33) 11/18/23 10:04 MCHC 31.7 g/dL (30-55) 11/18/23 10:04 RDW 13.4 % (12.1-15.1) 11/18/23 10:04 Plt Count 327 10^3/cmm (157-399) 11/18/23 10:04 MPV 10.2 fL (7.4-10.4) 11/18/23 10:04 Neut % (Auto) 65.1 % 11/18/23 10:04 Lymph % (Auto) 24.4 % 11/18/23 10:04 [place] % (Auto) 6.9 % 11/18/23 10:04 Eos % (Auto) 2.2 % 11/18/23 10:04 Baso % (Auto) 1.0 % 11/18/23 10:04 Neut # (Auto) 3.29 10^3/uL (1.8-7.7) 11/18/23 10:04 Lymph # (Auto) 1.2 10^3/uL (0.8-4.8) 11/18/23 10:04 [place] # (Auto) 0.4 10^3/uL (0.2-0.9) 11/18/23 10:04 Eos # (Auto) 0.1 10^3/uL (0.0-0.8) 11/18/23 10:04 Baso # (Auto) 0.1 10^3/uL (0.0-0.1) 11/18/23 10:04 Nucleated RBC % (auto) 0 % 11/18/23 10:04 Nucleated RBCs # 0.0 /100WBC 11/18/23 10:04 PT 12.30 SECONDS (12.1-14.9) 11/18/23 10:49 INR 0.89 (0.8-1.2) 11/18/23 10:49 APTT 23.3 SECONDS (23.9-36.7) L 11/18/23 10:49 Sodium 140 mmol/L (136-145) 11/18/23 10:49 Potassium 3.8 mmol/L (3.5-5.1) 11/18/23 10:49 Chloride 104 mmol/L (98-107) 11/18/23 10:49 Carbon Dioxide 26 mmol/L (22-29) 11/18/23 10:49 Anion Gap 13.8 (5-19) 11/18/23 10:49 BUN 13 mg/dL (8-23) 11/18/23 10:49 Creatinine 0.8 mg/dL (0.5-0.9) 11/18/23 10:49 GFR Calculation Not Reportable 11/18/23 10:49 Glucose 109 mg/dL (65-115) 11/18/23 10:49 Calculated Osmolality 291 mOsm/kg (285-295) 11/18/23 10:49 Calcium 9.3 mg/dL (8.5-10.5) 11/18/23 10:49 Total Bilirubin 0.2 mg/dL (0.15-1.2) 11/18/23 10:49 AST 17 U/L (0-32) 11/18/23 10:49 ALT 15 U/L (0-33) 11/18/23 10:49 Alkaline Phosphatase 107 U/L (35-105) H 11/18/23 10:49 Total Protein 7.2 g/dL (6.6-8.7) 11/18/23 10:49 Albumin 3.8 g/dL (3.5-5.2) 11/18/23 10:49 Globulin 3.4 g/dL (1.3-4.6) 11/18/23 10:49 No radiology studies performed this visit Discharge Plan Discharge Patient Disposition: Home Clinical Impression: Anal fissure Condition: Stable Prescriptions: New Nitro-Bid 2 % ointment 0.5 inch transdermal BID Qty: 30 0RF Rx Instructions: Apply topically to rectum twice a day until healed No Action simvastatin 20 mg tablet 20 mg PO DAILY aspirin [Adult Aspirin Regimen] 81 mg tablet,delayed release (DR/EC) 81 mg PO DAILY Hold Instructions: Resume on 09/01/22. famotidine 10 mg tablet 10 mg PO DAILY multivitamin Tablet 1 tab PO .COMPLEX Rx Instructions: 1 tab orally twice a week; triamcinolone acetonide 0.1 % cream 1 applic topical BID Qty: 80 0RF Rx Instructions: Apply to affected area twice daily prednisone 20 mg tablet 20 mg PO 1XD PRN (Reason: Rash) anastrozole [Arimidex] 1 mg tablet 1 mg PO DAILY Qty: 90 3RF Discharge Orders: Discharge ED (Routine); Ordered 11/18/23 Ordered By: Dwight Simmons Referrals: Ness Tavarez FNP [Primary Care Provider] - Discharge Diet: Usual diet Discharge Activity: Resume usual activity Patient Instructions: Opioid Safety, Pain Management Activity Restrictions/Additional Instructions: Thank you for choosing [facility] for your healthcare needs today. It is very important that you follow up as instructed or that you return to the Emergency Department should you have concerns or if your condition changes or worsens in any way. You were seen today for an episode of rectal bleeding. On exam there is anal fissure (skin tear) that is likely the source of bleeding. It is likely you may have further episodes of passing blood with bowel movements. Apply the ointment prescribed twice a day to the rectum until healed. Follow-up with your primary care provider. Coding Level of Care Code ED Tying Machine Operator for Faisal Ley
[2023-11-18 10:12] LABS: Basophils # 0.1 10^3/uL (0.0-0.1); Eosinophils # 0.1 10^3/uL (0.0-0.8); Eosinophils % 2.2 %; Hematocrit 37.9 % (36-47); Lymphocytes # 1.2 10^3/uL (0.8-4.8); Lymphocytes % 24.4 %; Mean Corpuscular HGB Conc 31.7 g/dL (30-55); Mean Corpuscular Hemoglobin 28.2 pg (27-33); Mean Platelet Volume 10.2 fL (7.4-10.4); Monocytes # 0.4 10^3/uL (0.2-0.9); Monocytes % 6.9 %; Neutrophils # 3.29 10^3/uL (1.8-7.7); Neutrophils % 65.1 %; Nucleated Red Blood Cells % 0 %; Platelet Count 327 10^3/cmm (157-399); Red Blood Count 4.26 10^6/uL (3.85-5.65); Red Cell Distribution Width 13.4 % (12.1-15.1); White Blood Count 5.05 10^3/uL (3.29-11.43)
[2023-11-18 11:07] LABS: INR 0.89 (0.8-1.2)
[2023-11-18 11:08] LABS: Partial Thromboplastin Time 23.3 SECONDS (23.9-36.7)
[2023-11-18 11:09] VITALS: BP 134/78; PULSE 92; O2SAT 95
[2023-11-18 11:15] LABS: Alanine Aminotransferase 15 U/L (0-33); Albumin Level 3.8 g/dL (3.5-5.2); Alkaline Phosphatase 107 U/L (35-105); Anion Gap 13.8 (5-19); Aspartate Amino Transferase 17 U/L (0-32); Blood Urea Nitrogen 13 mg/dL (8-23); Calcium 9.3 mg/dL (8.5-10.5); Carbon Dioxide 26 mmol/L (22-29); Chloride 104 mmol/L (98-107); Creatinine Clr Calc Pharmacy 48.6825; Globulin 3.4 g/dL (1.3-4.6); Glucose 109 mg/dL (65-115); Osmolality Calculated 291 mOsm/kg (285-295); Potassium 3.8 mmol/L (3.5-5.1); Sodium 140 mmol/L (136-145); Total Bilirubin 0.2 mg/dL (0.15-1.2); Total Protein 7.2 g/dL (6.6-8.7)
== END 2023-11-18 11:12 | disposition home or self-care (01) ==
PROVIDERS: Emergency Provider Family Medicine; PCP Registered Nurse
DX: K60.2 Anal fissure, unspecified (principal); Z79.82 Long term (current) use of aspirin; Z87.891 Personal history of nicotine dependence; Z85.3 Personal history of malignant neoplasm of breast; Z85.828 Personal history of other malignant neoplasm of skin
CPT/HCPCS: 80053; 85025; 85610; 85730; 99283

== ENCOUNTER 2023-11-22 12:59 | Oncology outpatient (recurring) (ONCR) | payer MEDICARE, OTHER, SELFPAY | END 2023-12-17 23:59 | disposition home or self-care (01) | PROVIDERS: PCP Registered Nurse; Visit Provider Radiology Radiation Oncology | DX: C50.211 Malignant neoplasm of upper-inner quadrant of right female breast (principal); Z17.0 Estrogen receptor positive status [ER+]; Z79.811 Long term (current) use of aromatase inhibitors; Z79.899 Other long term (current) drug therapy; Z87.891 Personal history of nicotine dependence | CPT/HCPCS: 99213 ==

== ENCOUNTER → 2024-04-04 14:01 | Outpatient (BNVA) | payer MEDICARE, OTHER, SELFPAY | PROVIDERS: PCP Registered Nurse; Visit Provider Dermatology | DX: L30.0 Nummular dermatitis (principal); L57.8 Other skin changes due to chronic exposure to nonionizing radiation; D48.5 Neoplasm of uncertain behavior of skin; L81.4 Other melanin hyperpigmentation; Z92.3 Personal history of irradiation; D22.61 Melanocytic nevi of right upper limb, including shoulder; D22.62 Melanocytic nevi of left upper limb, including shoulder; I87.2 Venous insufficiency (chronic) (peripheral); D22.0 Melanocytic nevi of lip; Z85.828 Personal history of other malignant neoplasm of skin; L57.0 Actinic keratosis | CPT/HCPCS: 11102; 17000; 99214 ==

== ENCOUNTER → 2024-04-29 12:57 | Outpatient (BNVA) | payer MEDICARE, OTHER, SELFPAY | PROVIDERS: PCP Registered Nurse; Visit Provider Dermatology | DX: D03.59 Melanoma in situ of other part of trunk (principal) | CPT/HCPCS: 11603; 13101 ==

== ENCOUNTER 2024-05-01 12:28 | Oncology outpatient (recurring) (ONCR) | payer MEDICARE, OTHER, SELFPAY ==
--- NOTE | 2024-05-01 13:00 | MM_ITS ---
WS: [id number] BILATERAL 3D TOMOSYNTHESIS DIGITAL DIAGNOSTIC MAMMOGRAPHY WITH CAD CLINICAL INFORMATION: follow up on last mammo HISTORY: History of RIGHT breast cancer COMPARISON: 2022 TECHNIQUE: Bilateral CC, MLO, and ML views. FINDINGS: The breasts are composed of heterogeneous fibroglandular density, which can limit the detection of sm all underlying mass lesions. Prior lumpectomy RIGHT breast at the 1 o'clock position. No new suspicio us findings. No suspicious focal mass, asymmetry, calcifications, or architectural distortion. No evidence of mercy gnancy. MM/MM diag BI tomosynthesis [id number] IMPRESSION: DENSITY: The breasts are heterogeneously dense, which may obscure small masses. BI-RADS: 2 - Benign FOLLOW UP: 1 Year Follow-up Recommend return to annual screening mammography.
== END 2024-05-18 23:59 | disposition home or self-care (01) ==
PROVIDERS: PCP Family Medicine; Visit Provider Radiology Radiation Oncology
DX: C50.911 Malignant neoplasm of unspecified site of right female breast; Z98.890 Other specified postprocedural states; R92.333 Mammographic heterogeneous density, bilateral breasts
CPT/HCPCS: 77062; G0279

== ENCOUNTER → 2024-05-13 11:41 | Outpatient (BNVA) | payer MEDICARE, OTHER, SELFPAY | PROVIDERS: PCP Family Medicine; Visit Provider Dermatology | DX: L23.1 Allergic contact dermatitis due to adhesives (principal) | CPT/HCPCS: 99212 ==

== ENCOUNTER 2024-05-27 11:53 | Oncology outpatient (recurring) (ONCR) | payer MEDICARE, OTHER, SELFPAY ==
[2024-05-27 12:10] LABS: Basophils # 0.1 10^3/uL (0.0-0.1); Basophils % 0.8 %; Eosinophils # 0.2 10^3/uL (0.0-0.8); Eosinophils % 2.5 %; Hematocrit 36.2 % (36-47); Lymphocytes # 1.5 10^3/uL (0.8-4.8); Mean Corpuscular HGB Conc 31.2 g/dL (30-55); Mean Corpuscular Hemoglobin 27.6 pg (27-33); Mean Corpuscular Volume 88.3 fl (85-98); Mean Platelet Volume 9.5 fL (7.4-10.4); Monocytes # 0.6 10^3/uL (0.2-0.9); Monocytes % 10.1 %; Neutrophils # 3.74 10^3/uL (1.8-7.7); Neutrophils % 62.1 %; Nucleated Red Blood Cells % 0 %; Platelet Count 275 10^3/cmm (157-399); Red Cell Distribution Width 13.7 % (12.1-15.1); White Blood Count 6.03 10^3/uL (3.29-11.43)
[2024-05-27 12:26] LABS: Alanine Aminotransferase 12 U/L (0-33); Alkaline Phosphatase 108 U/L (35-105); Anion Gap 14.9 (5-19); Aspartate Amino Transferase 18 U/L (0-32); Blood Urea Nitrogen 12 mg/dL (8-23); Calcium 9.4 mg/dL (8.5-10.5); Carbon Dioxide 26 mmol/L (22-29); Chloride 105 mmol/L (98-107); Creatinine Clr Calc Pharmacy 49.0091; Globulin 2.9 g/dL (1.3-4.6); Glucose 93 mg/dL (65-115); Osmolality Calculated 293 mOsm/kg (285-295); Potassium 3.9 mmol/L (3.5-5.1); Sodium 142 mmol/L (136-145); Total Bilirubin 0.3 mg/dL (0.15-1.2); Total Protein 6.9 g/dL (6.6-8.7)
== END 2024-06-18 23:59 | disposition home or self-care (01) ==
PROVIDERS: Nurse Practitioner Family; PCP Family Medicine; Visit Provider Radiology Radiation Oncology
DX: C50.211 Malignant neoplasm of upper-inner quadrant of right female breast (principal); Z17.0 Estrogen receptor positive status [ER+]; Z79.811 Long term (current) use of aromatase inhibitors; Z79.899 Other long term (current) drug therapy; Z87.891 Personal history of nicotine dependence; Z53.9 Procedure and treatment not carried out, unspecified reason
CPT/HCPCS: 36415; 80053; 85025; 99214

== ENCOUNTER 2024-06-17 11:39 | Outpatient (CLI) | payer MEDICARE, OTHER, SELFPAY ==
--- NOTE | 2024-06-17 11:47 | XR_ITS ---
WS: [id number] Bilateral hips, 2 views each, 06/17/2024 Clinical Data: bilateral hip pain Comparison: None. Findings: Right hip: No fractures or dislocations are seen. The right hip shows no erosion, narrowing, cyst formation or i rregularity of the right femoral head. The soft tissues are normal. The adjacent pelvis is unremarkab le. Left hip: No fractures or dislocations are seen. The left hip shows no erosion, narrowing, cyst formation or ir regularity of the left femoral head. The soft tissues are normal. The adjacent pelvis is unremarkable . XR/XR hip BI 2V wo/w pel [id number] Impression: Negative bilateral hips.
== END 2024-06-17 11:40 | disposition home or self-care (01) ==
PROVIDERS: PCP Family Medicine; Visit Provider Nurse Practitioner Family
DX: M25.552 Pain in left hip (principal); M25.551 Pain in right hip; C50.911 Malignant neoplasm of unspecified site of right female breast; Z79.811 Long term (current) use of aromatase inhibitors
CPT/HCPCS: 73521

== ENCOUNTER 2024-07-04 12:26 | Oncology outpatient (recurring) (ONCR) | payer MEDICARE, OTHER, SELFPAY | END 2024-07-19 23:59 | disposition home or self-care (01) | PROVIDERS: PCP Family Medicine; Visit Provider Internal Medicine | DX: C50.211 Malignant neoplasm of upper-inner quadrant of right female breast (principal); Z87.891 Personal history of nicotine dependence; Z17.0 Estrogen receptor positive status [ER+]; Z79.811 Long term (current) use of aromatase inhibitors; Z92.3 Personal history of irradiation; Z92.21 Personal history of antineoplastic chemotherapy | CPT/HCPCS: 99213 ==

== ENCOUNTER → 2024-10-03 13:29 | Outpatient (BNVA) | payer MEDICARE, OTHER, SELFPAY | PROVIDERS: PCP Family Medicine; Visit Provider Dermatology | DX: D22.62 Melanocytic nevi of left upper limb, including shoulder (principal); L57.8 Other skin changes due to chronic exposure to nonionizing radiation; Z85.820 Personal history of malignant melanoma of skin; Z08 Encounter for follow-up examination after completed treatment for malignant neoplasm; Z85.828 Personal history of other malignant neoplasm of skin | CPT/HCPCS: 99213 ==

== ENCOUNTER 2025-01-14 13:56 | Oncology outpatient (recurring) (ONCR) | payer MEDICARE, OTHER, SELFPAY ==
[2025-01-13 13:39] LABS: Hematocrit 36.4 % (36-47); Hemoglobin 11.50 g/dL (11.27-16.99); Mean Corpuscular HGB Conc 31.6 g/dL (30-55); Mean Corpuscular Hemoglobin 27.5 pg (27-33); Mean Corpuscular Volume 87.1 fl (85-98); Nucleated Red Blood Cells % 0 %; Platelet Count 279 10^3/cmm (157-399); Red Blood Count 4.18 10^6/uL (3.85-5.65); White Blood Count 5.37 10^3/uL (3.29-11.43)
[2025-01-13 14:01] LABS: Alanine Aminotransferase 11 U/L (0-33); Albumin Level 4.0 g/dL (3.5-5.2); Alkaline Phosphatase 114 U/L (35-105); Anion Gap 14.8 (5-19); Aspartate Amino Transferase 17 U/L (0-32); Blood Urea Nitrogen 8 mg/dL (8-23); Calcium 9.1 mg/dL (8.5-10.5); Carbon Dioxide 24 mmol/L (22-29); Chloride 105 mmol/L (98-107); Globulin 3.2 g/dL (1.3-4.6); Glucose 99 mg/dL (65-115); Osmolality Calculated 288 mOsm/kg (285-295); Potassium 3.8 mmol/L (3.5-5.1); Sodium 140 mmol/L (136-145); Total Protein 7.2 g/dL (6.6-8.7)
== END 2025-01-16 23:59 | disposition home or self-care (01) ==
PROVIDERS: Nurse Practitioner Family; PCP Family Medicine; Visit Provider Internal Medicine Medical Oncology
DX: C50.211 Malignant neoplasm of upper-inner quadrant of right female breast (principal); Z87.891 Personal history of nicotine dependence; Z17.0 Estrogen receptor positive status [ER+]; Z79.811 Long term (current) use of aromatase inhibitors; Z92.3 Personal history of irradiation; Z92.21 Personal history of antineoplastic chemotherapy; Z79.899 Other long term (current) drug therapy; Z53.9 Procedure and treatment not carried out, unspecified reason
CPT/HCPCS: 36415; 80053; 82306; 85025; 99214

== ENCOUNTER → 2025-02-03 10:07 | Outpatient (BNVA) | payer MEDICARE, OTHER, SELFPAY | PROVIDERS: PCP Family Medicine; Visit Provider Dermatology | DX: D22.62 Melanocytic nevi of left upper limb, including shoulder (principal); L82.1 Other seborrheic keratosis; L30.0 Nummular dermatitis; L81.7 Pigmented purpuric dermatosis; L57.8 Other skin changes due to chronic exposure to nonionizing radiation | CPT/HCPCS: 17000; 17110; 99214 ==

== ENCOUNTER 2025-03-26 08:54 | Oncology outpatient (recurring) (ONCR) | payer MEDICARE, OTHER, SELFPAY ==
[2025-03-26 09:19] LABS: Hematocrit 40.3 % (36-47); Hemoglobin 13.10 g/dL (11.27-16.99); Mean Corpuscular HGB Conc 32.5 g/dL (30-55); Mean Corpuscular Hemoglobin 28.6 pg (27-33); Mean Corpuscular Volume 88.0 fl (85-98); Nucleated Red Blood Cells % 0 %; Platelet Count 355 10^3/cmm (157-399); Red Blood Count 4.58 10^6/uL (3.85-5.65); White Blood Count 9.77 10^3/uL (3.29-11.43)
[2025-03-26 09:45] LABS: Alanine Aminotransferase 14 U/L (0-33); Albumin Level 4.3 g/dL (3.5-5.2); Alkaline Phosphatase 153 U/L (35-105); Anion Gap 16.6 (5-19); Aspartate Amino Transferase 16 U/L (0-32); Blood Urea Nitrogen 17 mg/dL (8-23); Calcium 9.6 mg/dL (8.5-10.5); Carbon Dioxide 24 mmol/L (22-29); Chloride 103 mmol/L (98-107); Globulin 3.3 g/dL (1.3-4.6); Glucose 125 mg/dL (65-115); Osmolality Calculated 293 mOsm/kg (285-295); Potassium 3.6 mmol/L (3.5-5.1); Sodium 140 mmol/L (136-145); Total Protein 7.6 g/dL (6.6-8.7)
== END 2025-04-18 23:59 | disposition home or self-care (01) ==
PROVIDERS: Nurse Practitioner Family; PCP Family Medicine; Visit Provider Internal Medicine Medical Oncology
DX: C50.211 Malignant neoplasm of upper-inner quadrant of right female breast (principal); Z87.891 Personal history of nicotine dependence; Z17.0 Estrogen receptor positive status [ER+]; Z79.811 Long term (current) use of aromatase inhibitors; Z92.3 Personal history of irradiation; Z92.21 Personal history of antineoplastic chemotherapy; Z79.899 Other long term (current) drug therapy; Z53.9 Procedure and treatment not carried out, unspecified reason; C50.911 Malignant neoplasm of unspecified site of right female breast
CPT/HCPCS: 36415; 80053; 82306; 85025

== ENCOUNTER 2025-05-02 12:15 | Oncology outpatient (recurring) (ONCR) | payer MEDICARE, OTHER, SELFPAY ==
--- NOTE | 2025-05-02 12:30 | MM_ITS ---
WS: [id number] VIEWS: MLO, CC, and ML views both breasts. 3D digital tomosynthesis is also included in this exam. VIEWS: MLO, CC, and ML views both breasts. 3D digital tomosynthesis is also included in this exam. Comparison made with prior exam of 05/04/2022, 04/26/2023, 05/01/2024, 04/22/2020.. Findings: The breasts are heterogeneously dense, which may obscure small masses. No suspicious mass, tumor calcification or architectural distortion. Several stable appearing nodular densities are noted bilaterally. MM/MM diag BI tomosynthesis [id number] Impression: BI-RADS: 2 - Benign FOLLOW-UP: 1 Year Follow-up This mammogram was also analyzed by the Computer Aided Detection System [employer] Im[employer] Floral Manager.
--- NOTE | 2025-05-02 13:00 | XR_ITS ---
WS: [id number] DEXA (DUAL ENERGY X-RAY ABSORPTIOMETRY) Bone mineral density was performed using a [employer] machine. HISTORY: AI use COMPARISON: 04/26/2023 Lumbar spine BMD (L1-L4): 0.954 g/cm2 T score: -1.9 Z score: 0.1 Total hip BMD: Left: 0.795 g/cm2. T score: -1.7 Z score: 0.5 Right: 0.704 g/cm2. T score: -2.4 Z score: -0.3 10 year probability of a major osteoporotic fracture is 29.5%. Compared to the prior study from 04/26/2023. Lumbar spine bone mineral density has increased by 1.8%. Bilateral hips bone mineral density has decreased by 3.5%. XR/XR DEXA axial skeleton* [id number] IMPRESSION: OSTEOPENIA based upon the WHO classification for females. Significant decrease in bone mineral density within the hips since the prior st y. No significant change of bone mineral density in the lumbar spine.
== END 2025-05-18 23:59 | disposition home or self-care (01) ==
LOC: ONCMED 12:16
PROVIDERS: PCP Family Medicine; Visit Provider Internal Medicine Medical Oncology
DX: C50.911 Malignant neoplasm of unspecified site of right female breast (principal); Z79.811 Long term (current) use of aromatase inhibitors; M85.80 Other specified disorders of bone density and structure, unspecified site; R92.333 Mammographic heterogeneous density, bilateral breasts; N64.89 Other specified disorders of breast
CPT/HCPCS: 77062; 77080; G0279